=== PATIENT | male | born 1975 | race Caucasian/White ===

== ENCOUNTER → 2016-04-18 | Outpatient (REF) | payer OTHER | LOC: M SMT 16:57 | PROVIDERS: ATTEND Nurse Practitioner Women's Health | DX: R31.0 Gross hematuria (principal) | CPT/HCPCS: 81001; 87086; 88108; G0463 ==

== ENCOUNTER → 2016-04-20 | Outpatient (CLI) | payer OTHER ==
[~2016-04-20] MED LIST: ISOVUE-370 76% 100ML VIAL (Q9967) As Ordered ONE
--- NOTE | 2016-04-20 14:43 | REP ---
Clinical: Gross hematuria. Technique: Axial precontrast, contrast enhanced, and delayed images of the abdomen and pelvis using 100 ml Isovue 370 intravenous contrast material with coronal and sagittal re-formations as well as MIP urogram re-formation. Findings: Evaluation of the urinary tract system demonstrates normal bladder and bilateral ureters and kidneys. There is no perinephric stranding, hydroureteronephrosis, intrarenal or obstructing ureteral calculi and no renal cystic or mass lesions. Appropriate symmetric enhancement and excretion noted. Liver, spleen, pancreas, gallbladder, and bilateral adrenal glands are normal. The enteric system is without obstruction or acute inflammatory process normal terminal ileum and appendix identified in the right lower quadrant. Pelvis demonstrates normal prostate/seminal vesicles. No ascites. No intraperitoneal or retroperitoneal adenopathy. No mass lesion. Vasculature is normal and without aneurysm or dissection. Surrounding musculoskeletal structures are intact. Lung bases are clear. Impression: Normal examination. Normal urinary tract system. Signed by Joshua Shi MD 04/20/2016 02:34 P
== END ==
LOC: M RAD 13:24
PROVIDERS: ATTEND Nurse Practitioner Women's Health
DX: R31.0 Gross hematuria (principal)
CPT/HCPCS: 74178; Q9967

== ENCOUNTER → 2016-06-12 | Outpatient (REF) | payer OTHER | LOC: M SMT 12:55 | PROVIDERS: ATTEND Nurse Practitioner Women's Health | DX: Z87.440 Personal history of urinary (tract) infections (principal) | CPT/HCPCS: 51798; 81001; 87086; G0463 ==

== ENCOUNTER 2017-01-14 09:49 | Day surgery (SDC) | payer OTHER ==
[~2017-01-14] VITALS: Ht 180.3 cm; Wt 102.5 kg
[~2017-01-14 09:49] MED LIST changes: -ISOVUE-370 76% 100ML VIAL (Q9967) As Ordered ONE; +TESTPOW5 IM
[2017-01-14] MEDS ORDERED: NS 1,000 ML IV ONE (10:15)
[2017-01-14] MEDS ORDERED: IBUP200C10 PO (10:46)
[2017-01-14] MEDS ORDERED: ACET50TAOT PO (10:46)
[2017-01-14] MEDS ORDERED: LIDOCAINE 2% INJ 100 MG/5 ML SDV (FOR ANES.) As Ordered ONE (11:48)
[2017-01-14] MEDS ORDERED: PROPOFOL 200 MG/20 ML VIAL As Ordered ONE ×2 (11:48→11:55)
--- NOTE | 2017-01-14 12:04 | ROOR ---
Patient Name: Nick Doe Procedure Date: 01/14/2017 11:43 AM Date of : 1975 Age: 41 Room: [facility] Gender: Male Note Status: Finalized Procedure: Upper Endoscopy + Biopsies Indications: Persistent vomiting of unknown cause, Vomiting Providers: Marcello Dixon MD Referring MD: LADAN PICKERING MD Requesting Provider: Medicines: Monitored Anesthesia Care Complications: No immediate complications. Procedure: Pre-Anesthesia Assessment: - The heart rate, respiratory rate, oxygen saturations, blood pressure, adequacy of pulmonary ventilation, and response to care were monitored throughout the procedure. The Endoscope was introduced through the mouth, and advanced to the second part of duodenum. The upper GI endoscopy was accomplished without difficulty. The patient tolerated the procedure well. Findings: The Z-line was regular and was found 40 cm from the incisors. No other significant abnormalities were identified in a careful examination of the stomach. Biopsies were taken with a cold forceps in the gastric antrum for Helicobacter pylori testing. The exam of the duodenum was otherwise normal. Impression: - Z-line regular, 40 cm from the incisors. - Biopsies were taken with a cold forceps for Helicobacter pylori testing. - The examination was otherwise normal. Recommendation: - Patient has a contact number available for emergencies. The signs and symptoms of potential delayed complications were discussed with the patient. Return to normal activities tomorrow. Written discharge instructions were provided to the patient. - High fiber diet. - Discharge patient to home. - Continue present medications. - Await pathology results. - Telephone GI clinic for pathology results in 1 week. - Return to referring physician. - The findings and recommendations were discussed with the patient's family. Marcello Dixon MD Marcello Dixon MD 01/14/2017 12:04:34 PM This report has been signed electronically. Number of Addenda: 0 Note Initiated On: 01/14/2017 11:43 AM Estimated Blood Loss: Estimated blood loss: none.
[2017-01-14 12:30] VITALS: BP 136/89
== END 2017-01-14 12:40 | disposition home or self-care (01) ==
LOC: M OPP 09:49
PROVIDERS: ATTEND Internal Medicine Gastroenterology
DX: R11.2 Nausea with vomiting, unspecified (principal); K21.9 Gastro-esophageal reflux disease without esophagitis; R05 Cough; R63.4 Abnormal weight loss; Z87.891 Personal history of nicotine dependence; Z79.899 Other long term (current) drug therapy

== ENCOUNTER → 2017-04-08 | Outpatient (CLI) | payer OTHER ==
[~2017-04-08] MED LIST changes: +E-Z-GAS II EFFERVESCENT PACKET (SODIUM BICARB./CITRIC ACID/SIMETHICONE) As Ordered; +E-Z-HD 98% w/w 340GM SUSP BTL As Ordered; +E-Z-PAQUE 96% w/w SUSP 176GM BTL As Ordered; -TESTPOW5 IM
== END ==
LOC: M RAD 08:21
DX: R10.9 Unspecified abdominal pain (principal); R19.7 Diarrhea, unspecified
CPT/HCPCS: 74245